=== PATIENT | female | born 1990 | race American Indian/Alaskan Native ===

== ENCOUNTER 2018-09-30 21:26 | Emergency (ER) | payer OTHER ==
[2018-09-30] MEDS ORDERED: TYLENOL PO ONE (21:47)
[2018-09-30] MEDS ORDERED: TYLENOL ONE (21:50)
--- NOTE | 2018-09-30 22:59 | XRay Report ---
FINAL REPORT PROCEDURE: XR SHOULDER 2+V LT TECHNIQUE: LEFT shoulder radiographs including AP views in internal and external rotation and abduct ion. CPT 52736 HISTORY: Left shoulder pain COMPARISON: No prior studies are available for comparison. FINDINGS: Fracture (s) and/or Dislocation(s): None . Joint space(s): Normal . Soft tissues: Normal . Bone mineralization: Normal . Foreign bodies: None . IMPRESSION: Normal Examination
--- NOTE | 2018-09-30 23:00 | XRay Report ---
FINAL REPORT PROCEDURE: XR ANKLE 2V LT TECHNIQUE: LEFT ankle radiographs, AP and lateral views. HISTORY: left ankle pain COMPARISON: No prior studies are available for comparison. FINDINGS: Fracture (s) and/or Dislocation(s): None. Alignment: Normal. Joint space(s): Normal. Soft tissues: Normal. Bone mineralization: Normal. Foreign bodies: Normal. Calcaneal spurring: Normal. IMPRESSION: Normal Examination .
[2018-10-01] MEDS ORDERED: PROVENTIL IH ONE (02:13)
[2018-10-01 03:55] VITALS: BP 120/79
[2018-10-01] MEDS ORDERED: IBUPROFEN PO ONE (03:55)
--- NOTE | 2018-10-01 03:59 | Emergency Department Report ---
ED General Adult HPI - General Chief complaint: Extremity Injury, Lower Stated complaint: FELL DOWN STAIRS Time Seen by Provider: 10/01/18 03:52 Source: patient, family, RN notes reviewed Mode of arrival: Wheelchair Limitations: Physical Limitation - History of Present Illness Initial comments: This is a 27-year-old female. The patient reports that she is not . The patient is right-hand dominant. Patient presents to the emergency room after mechanical trip and fall. She fell down 3-4 steps. She did not hit her head. She did not hit her neck. She hurt her left shoulder and her left ankle. She has no other injuries, she has no other complaints. Her shoulder pain is now resolved. Her ankle pain is on the medial side of her left ankle. The pain is aching and sharp, increases with palpation, decreases with rest, and does not radiate anywhere. No other injuries. No other complaints. -: Sudden Location: left, upper extremity, lower extremity Radiation: non-radiation Severity scale (0 -10): 6 Quality: aching Consistency: intermittent Improves with: rest Worsens with: movement Associated Symptoms: denies other symptoms - Related Data Previous Rx's Medication Instructions Recorded Last Taken Type Acetaminophen [Tylenol Arthritis] 650 mg PO Q6HR PRN #30 tablet.er 10/01/18 Unknown Rx Ibuprofen [Motrin] 600 mg PO Q8H PRN #30 tablet 10/01/18 Unknown Rx Allergies Allergy/AdvReac Type Severity Reaction Status Date / Time No Known Allergies Allergy Unverified 09/30/18 21:30 ED Review of Systems ROS: Stated complaint: FELL DOWN STAIRS Other details as noted in HPI Constitutional: denies: fever Eyes: denies: vision change ENT: denies: epistaxis Respiratory: denies: cough Cardiovascular: denies: chest pain Genitourinary: denies: hematuria Musculoskeletal: arthralgia, myalgia. denies: back pain Skin: denies: lesions Neurological: denies: headache, weakness, numbness, paresthesias, confusion ED Past Medical Hx - Past Medical History Previous Medical History?: Yes Additional medical history: Obesity - Surgical History Past Surgical History?: No - Social History Smoking Status: Never Smoker Substance Use Type: None - Medications Home Medications: Home Medications Medication Instructions Recorded Confirmed Last Taken Type Acetaminophen [Tylenol Arthritis] 650 mg PO Q6HR PRN #30 tablet.er 10/01/18 Unknown Rx Ibuprofen [Motrin] 600 mg PO Q8H PRN #30 tablet 10/01/18 Unknown Rx ED Physical Exam - General Limitations: Physical Limitation General appearance: alert, in no apparent distress, obese - Head Head exam: Present: atraumatic, normocephalic - Eye Eye exam: Present: normal appearance, EOMI. Absent: nystagmus - ENT ENT exam: Present: normal exam, normal orophraynx, mucous membranes moist, normal external ear exam - Neck Neck exam: Present: normal inspection - Respiratory Respiratory exam: Present: normal lung sounds bilaterally. Absent: respiratory distress - Cardiovascular Cardiovascular Exam: Present: regular rate, normal rhythm, normal heart sounds. Absent: systolic murmur, diastolic murmur, rubs, gallop - GI/Abdominal GI/Abdominal exam: Present: soft. Absent: distended, tenderness, guarding, rebo und, rigid, pulsatile mass - Extremities Exam Extremities exam: Present: normal inspection, full ROM, tenderness (there is left medial malleolus tenderness. Downgoing plantar reflexes bilaterally. There is no snuffbox tenderness. Tim test intact bilaterally. Full active and passive range of motion bilateral upper extremities and right lower extremity. Full active and passive range of motion in the left lower extremity, with the exception of the left ankle, secondary to pain. There is no tenderness at the base of the fifth metatarsal bilaterally.), other (2+ pulses noted in the bilateral upper, lower extremities. Compartments soft. No long bony tenderness. The pelvis is stable.). Absent: calf tenderness - Back Exam Back exam: Present: normal inspection, full ROM. Absent: tenderness, CVA tenderness (R), paraspinal tenderness, vertebral tenderness - Neurological Exam Neurological exam: Present: alert, oriented X3, CN II-XII intact, other (Extraocular movements intact. Tongue midline. No facial droop. Facial sensation intact to light touch in the V1, V2, V3 distribution bilaterally. 5 and 5 strength in 4 extremities.. Sensation is intact to light touch in 4 extremities.). Absent: motor sensory deficit - Psychiatric Psychiatric exam: Present: normal affect, normal mood - Skin Skin exam: Present: warm, dry, intact, normal color. Absent: rash ED Course Vital Signs 09/30/18 10/01/18 10/01/18 21:41 03:53 04:04 Temperature 99 F 97.0 F L Pulse Rate 98 H 86 Respiratory 16 18 18 Rate Blood Pressure 136/91 Blood Pressure 120/79 [Right] O2 Sat by Pulse 98 98 Oximetry ED Medical Decision Making - Lab Data Vital Signs 09/30/18 10/01/18 10/01/18 21:41 03:53 04:04 Temperature 99 F 97.0 F L Pulse Rate 98 H 86 Respiratory 16 18 18 Rate Blood Pressure 136/91 Blood Pressure 120/79 [Right] O2 Sat by Pulse 98 98 Oximetry - Radiology Data Radiology results: report reviewed, image reviewed Left shoulder x-ray negative for acute disease. Left ankle x-ray negative for acute disease. - Medical Decision Making Differential diagnosis, including but not limited to: Ankle sprain, strain, fracture, dislocation, left shoulder sprain Assessment and plan: 27-year-old female who is right-hand dominant with mild blunt traumatic injury. Clinically sober, Elizabeth Coma Scale of 15. Patient is clinically sober at this time. The cervical spine is cleared through nexus and czech c spine rule Primary secondary survey is unremarkable, with the exception of left medial ankle tenderness. Patient will be placed in an ankle air cast, she will be given crutches, she will be made nonweightbearing, and she will be instructed to follow-up with an outpatient orthopedist for further management. She is given pain medication. Return precautions and expectant management have been discussed with the patient. Critical care attestation.: If time is entered above; I have spent that time in minutes in the direct care of this critically ill patient, excluding procedure time. ED Disposition Clinical Impression: Fall, Left ankle sprain Disposition: DC- TO HOME OR SELFCARE Is pt being admited?: No Does the pt Need Aspirin: No Condition: Good Instructions: Ankle Sprain (ED) Additional Instructions: Pain typically gets worse before it gets better after a mechanical fall. Rest, and avoid heavy lifting and avoid strenuous physical activities. Use the crutches as directed, and remain nonweightbearing in the left foot. Follow up with an orthopedist within the next 5-7 days. Take the pain medication as needed/directed, and return to the emergency room right away with new, worsening or different symptoms. Prescriptions: Acetaminophen [Tylenol Arthritis] 650 mg PO Q6HR PRN #30 tablet.er PRN Reason: Pain Ibuprofen [Motrin] 600 mg PO Q8H PRN #30 tablet PRN Reason: Pain Referrals: ERICA REGALADO MD [Staff Physician] - 7-10 days [facility] [Provider Group] - 7-10 days
== END 2018-10-01 05:40 | disposition home or self-care (01) ==
LOC: ED 21:26
DX: S93.402A Sprain of unspecified ligament of left ankle, initial encounter (principal); M25.512 Pain in left shoulder; M79.10 Myalgia, unspecified site; E66.9 Obesity, unspecified; Z68.41 Body mass index [BMI] 40.0-44.9, adult; W10.8XXA Fall (on) (from) other stairs and steps, initial encounter; Y93.89 Activity, other specified; Y92.89 Other specified places as the place of occurrence of the external cause; Y99.8 Other external cause status
CPT/HCPCS: 99283